=== PATIENT | female | born 1960 | race Caucasian/White ===

== ENCOUNTER 2017-01-19 05:14 | Day surgery (SDC) | payer OTHER ==
--- NOTE | 2017-01-18 11:58 | HP ---
DATE OF CLINIC: 01/04/2017 MICHELLE CASEY : 1960 PLANNED PROCEDURE: Left Carpal Tunnel Release DATE OF SURGERY: January 19, 2017 SURGEON: Gian Westbrook M.D. PCP: BREANNA Arreola HISTORY OF PRESENT ILLNESS Michelle Casey is a 56 year old female. * Medication list reviewed with patient allergy list reviewed with patient. * Tried NSAIDS Meloxicam * Has not tried Physical Therapy * Has not tried Injections This is a 56-year-old female who had bilateral carpal tunnel syndrome. She was treated with a right carpal tunnel release with good effect by Dr. Herrera the first part of the September. She presents with persistent symptoms in her left hand desiring surgical management. She has nerve conduction studies that document the same. She complains of 3-4/10 pain in her left hand. It is worse with activities or pressure in the palm. She has numbness and tingling in the radial 3.5 digits. PAST MEDICAL AND SURGICAL HISTORY: No changes in her past medical or surgical history since her previous visits. CURRENT MEDICATION * Abilify 2 MG Tablet 1 once a day 0 days, 0 refills * flexeril 10mg Tablet 1 once a day 0 days, 0 refills * Meloxicam 7.5 MG Tablet 1 once a day 0 days, 0 refills * MetFORMIN HCl 500 MG Tablet four times a day 0 days, 0 refills * Omeprazole 10 MG Capsule Delayed Release 1 twice a day 0 days, 0 refills * OxyCODONE HCl 5 MG Tablet 1 twice a day prn post operative pain, 10 days, 0 refills * Sertraline HCl 25 MG Tablet 1 once a day 0 days, 0 refills * TraZODone HCl 50 MG Tablet 1 every bedtime 0 days, 0 refills PAST MEDICAL/SURGICAL HISTORY Reported: Medical: Reported numbness, Reported tingling, Diabetes Mellitus, history of Arthritis, and Hypertension. Surgical / Procedural: Prior surgery Ear Surgery Leg Surgery and Carpal Tunnel Surgery Right performed by Dr. Cristhian Herrera at the [facility] on 09/28/16. Surgical: * Hysterectomy partial hysterectomy SOCIAL HISTORY Behavioral: Caffeine use and non-smoker quit smoking. Smoking status: Former smoker. ALLERGIES * Codeine * Gabapentin FAMILY HISTORY 4 children living REVIEW OF SYSTEMS No recent constitutional symptoms to include fevers and chills. No recent cardiovascular symptoms to include chest pain or palpitations. No recent respiratory symptoms to include shortness of breath or recent infections. PHYSICAL FINDINGS * Vitals taken 01/04/2017 08:52 am BP-Sitting R 148/83 mmHg Pulse Rate-Sitting 69 bpm Temp-Oral 98.2 F Height 63 in Weight 206 lbs 9.6 oz Body Mass Index 36.6 kg/m2 Body Surface Area 1.96 m2 Pain Level 3 Pain Level Note 3-4/10 Ears, Nose, Throat: * ENT: normal. Lungs: * Clear to auscultation. Cardiovascular: Heart Rate and Rhythm: * Normal. Abdomen: * Normal. Neurological: Motor: * Dominant Hand = Right Hand. Patient is a well-developed, well-nourished female in no acute distress. They are awake, alert and conversant throughout the encounter. CARDIOVASCULAR: Intact peripheral pulses on bilateral upper extremities. No significant edema on inspection of bilateral upper extremities. NEUROLOGIC: Patient had intact coordinated composite motion of the bilateral upper extremities and sensation intact to light touch in all distributions of bilateral upper extremities. PSYCHIATRIC: Patient was oriented to person, place and time and displayed appropriate mood and affect during the encounter. SKIN: Exam of the skin on bilateral upper extremities showed no significant scars, lesions, rashes or masses. FOCUSED MUSCULOSKELETAL EXAM: The patient has a well-healed surgical scar over her right wrist. She has no swelling, erythema or ecchymosis over the left wrist. She has normal resting station of the shoulder, elbows and wrists bilaterally. She has range of motion of the left wrist with flexion to 40 degrees, extension of 20 degrees neutral full pronation and supination. She has positive Tinel's, flexion compression and Phalen's test on the left side. She has 5/[address] seen in the thenar eminence and she is otherwise neurologically intact at the radial, ulnar, AIN and PIN distributions. Her hand is warm and well perfused with brisk capillary refill. TESTS * Test: CBC NO DIFF Report Date: 01/04/2017 WBC 9.7 10*3/mL RBC 4.90 10*6/uL MCH 28.2 pg MCHC 33.1 g/dL RDW 12.7 % MCV 85.1 fL PLATELET COUNT 218 10*3/mL HCT 41.7 % HGB 13.8 g/L * Test: COMPREHENSIVE METABOLIC PANEL Report Date: 01/04/2017 ALT/SGPT 41 U/L ALBUMIN 4.4 g/dL ALB/GLOB RATIO 1.3 BUN 12 mg/dL BUN/CREAT RATIO 13 CALCIUM 10.0 mg/dL GLUCOSE 170 mg/dL High CREATININE 0.9 mg/dL SODIUM 138 meq/L POTASSIUM 4.7 meq/L CHLORIDE 101 meq/L CARBON DIOXIDE 29 meq/L ANION GAP 13 meq/L TOT PROTEIN 7.8 g/dL GLOBULIN 3.4 g/dL BILI,TOTAL 0.7 mg/dL AST/SGOT 72 U/L High ALK PHOSPHATASE 49 U/L GFR 65 IMAGING: A review of x-rays show some mild erosions around the tip of the radial styloid that could be consistent with an inflammatory arthropathy although she has no documented history of the same. There are no masses in the volar portion of the wrist to suggest a bony component to her nerve compression syndrome. ASSESSMENT A 56-year-old female with left carpal tunnel syndrome. THERAPY * Patient not eligible for fall risk assessment. PLAN * Carpal tunnel syndrome, left upper limb Hydrocodone-Acetaminophen 5-325 MG TABS, 1 every 4 - 6 hours as needed, 14 days, 0 refills * Decompression of median nerve at carpal tunnel -left The plan will be for left open carpal tunnel release. Risks, benefits and alternatives were discussed. The patient was eager to proceed with surgery. Informed consent was obtained and documented in the chart and she will be placed on the schedule at the first available convenience. CARE TEAM Malina Arellano PA-C Physician Turret Lathe Machinist SURGICAL CONSENT We have discussed surgical options including left carpal tunnel release and non-operative management. The patient was counseled in detail regarding the diagnosis, treatment options available, prognosis of each treatment option and the potential risks and complications. The risks of surgery include, but are not limited to, anesthetic , neurovascular complications, pulmonary embolism, deep vein thrombosis, wound dehiscence, failure of any or all of the discussed procedures, infection of the joint or surrounding soft tissue, need for revision surgery, chronic pain, limitations in activities of daily living, inability to return to work, and loss of normal range of motion or functional use of the extremity. There is the possibility of failure over time that may require additional operative or non-operative treatment. The patient acknowledged that there are a number of perioperative risks not mentioned here and would still like to proceed. The patient is aware of and understands these risks, and wishes to proceed with the proposed surgical procedure and other procedures as indicated at the time of surgery. We will have the patient see their PCP for a preoperative medical risk assessment. The preoperative instructions were reviewed with the patient and all questions were answered. PB/sg
[2017-01-19] MEDS ORDERED: IV START KIT ONE ×2 (05:35)
[2017-01-19] MEDS ORDERED: LACTATED RINGERS 0 ML ONE (05:35)
[2017-01-19] MEDS ORDERED: CEFAZOLIN SODIUM 2 GRAM PREMIX 100 ML IV PRN (05:45)
[2017-01-19] MEDS ORDERED: SODIUM CHLORIDE 0.9% 1,000 ML ONE (05:47)
[2017-01-19] MEDS ORDERED: LIDOCAINE 0.5% (PRES FREE) 50 ML VIAL ONE (06:28)
[2017-01-19] MEDS ORDERED: FENTANYL 100 MCG/2 ML VIAL ONE (06:34)
[2017-01-19] MEDS ORDERED: MIDAZOLAM HCL 5 MG/5 ML VIAL ONE (06:34)
[2017-01-19] MEDS ORDERED: PROPOFOL 20 ML IV ONE (07:14)
--- NOTE | 2017-01-19 08:02 | PCMBPN ---
Brief Post Op Note: Date of Procedure: 01/19/17 Start Time: 729 Preoperative Diagnosis: 1. LEFT CTS Postoperative Diagnosis: 1. Same Procedure: LEFT Open CTR Surgeon: Gian Westbrook MD Assist:BREANNA Mckee Anesthesia: Ani Sheets CRNA Findings: See above Condition: Stable Complications: None IV Fluids: 500 mLs of LR Urine Output: 0 mLs Estimated Blood Loss: 5 mLs Tourniquet Time: 5 min at 250mmHg Specimens: N/A Implants: None Drains: [N/A]
[2017-01-19] MEDS ORDERED: HYDROMORPHONE HCL 1 MG/ML SYRINGE IV PRN (08:15)
[2017-01-19] MEDS ORDERED: ONDANSETRON 4 MG/2ML 2 ML VIAL IV PRN (08:15)
[2017-01-19] MEDS ORDERED: OXYCODONE/ACETAMINOPHEN 5/325 MG TABLET PO PRN (08:15)
[2017-01-19] MEDS ORDERED: ACETAMINOPHEN 325 MG TABLET PO PRN (08:15)
[2017-01-19] MEDS ORDERED: DIPHENHYDRAMINE HCL 50 MG/1 ML VIAL IV PRN (08:15)
[2017-01-19] MEDS ORDERED: LACTATED RINGERS 1,000 ML IV SCH (08:15)
[2017-01-19] MEDS ORDERED: HYDROMORPHONE HCL 0.5 MG/0.5 ML SYRINGE IV PRN (09:11)
--- NOTE | 2017-01-20 14:21 | OP ---
Meghann CASEY : 1960 V [id number] DATE OF SERVICE: January 19, 2017 PREOPERATIVE DIAGNOSIS: Left carpal tunnel syndrome. POSTOPERATIVE DIAGNOSIS: Left carpal tunnel syndrome. PROCEDURE PERFORMED: Left CARPAL TUNNEL RELEASE. SURGEON: Gian Westbrook M.D. TRAWL NET MAKER: None. ANESTHESIA: Kylie Sheets C.R.N.A. SPECIMENS: No material was sent to the laboratory. ESTIMATED BLOOD LOSS: 5 mL FLUIDS REPLACED: 500 mL of crystalloid. TOURNIQUET TIME: 30 minutes at 250 mmHg. IMPLANTS: None. DRAINS: None. INDICATIONS: This is a 56-year-old right hand dominant patient with history, physical exam and neurodiagnostic findings of left carpal tunnel syndrome, which has failed to be relieved by nonoperative measures. Risks, benefits and alternatives of an open carpal tunnel release were discussed with the patient and they elected to proceed with surgery. Informed consent was obtained and documented in the chart and the patient was placed on the schedule the first available convenience. DESCRIPTION OF PROCEDURE: The patient was identified in the pre-operative holding area where they were marked with an indelible marker by the operating surgeon. The patient was taken to the operating room where they were placed in the supine position on the operating room table. A Machias block anesthetic was administered by the anesthesia provider. The patient was prepped and draped in the usual sterile fashion for surgery and received perioperative antibiotics prior to the inflation of the tourniquet. A final operative time out was performed and confirmed by all members of the operative team and a longitudinal incision was made on the patient's hand just 6 mm ulnar to the thenar flexion crease. Dissection was carried down identifying transverse fibers of the transverse carpal ligament. This was sharply divided at its proximal extent and the median nerve was visualized. A [place] elevator was passed into the carpal tunnel to protect the nerve while the remainder of the transverse carpal ligament was sharply divided. This was carried distally until we encountered the perivascular fat of the vascular arches. The tenotomy scissors were passed both superficial and deep to the distal volar forearm fascia proximally and no transligamentous branches of the nerve were identified. Under direct visualization a push cut technique was used to divide the proximal portion of the transverse carpal ligament and the distal volar forearm fascia. At this point we felt that we had achieved an adequate release of the patient's nerves so the wound was copiously irrigated with sterile saline and closed with horizontal mattress sutures of #4-0 Nylon. A sterile dressing of Xeroform, fluffs, web roll and an ROSA bandage was applied. The tourniquet was deflated, the drapes were removed. The patient was transferred to a stretcher and taken postoperatively to the same day surgery unit in stable condition. There were no observed intraoperative complications during this procedure. Job [id number] Cc: [facility]
== END 2017-01-19 08:52 | disposition home or self-care (01) ==
LOC: SDC 05:14
PROVIDERS: ATTEND Orthopaedic Surgery
PROC: 01N50ZZ Release Median Nerve, Open Approach (ICD-10-PCS; principal; 2017-01-19)
DX: G56.02 Carpal tunnel syndrome, left upper limb (principal); E11.9 Type 2 diabetes mellitus without complications; Z79.84 Long term (current) use of oral hypoglycemic drugs; I10 Essential (primary) hypertension; M19.90 Unspecified osteoarthritis, unspecified site; Z87.891 Personal history of nicotine dependence; Z88.5 Allergy status to narcotic agent; Z88.8 Allergy status to other drugs, medicaments and biological substances

== ENCOUNTER 2017-02-23 08:25 | Day surgery (SDC) | payer OTHER ==
[2017-02-23] MEDS ORDERED: CEFAZOLIN SODIUM 2 GRAM PREMIX 100 ML IV PRN (08:30)
--- NOTE | 2017-02-23 08:52 | HP ---
DATE OF CLINIC: 02/22/2017 MICHELLE CASEY : 1960 PLANNED PROCEDURE: I&D of Left Carpal Tunnel Release Incision DATE OF SURGERY: February 23, 2017 SURGEON: Gian Westbrook M.D. PCP: Malina Mohamud PA-C. HISTORY OF PRESENT ILLNESS Michelle Casey is a 56 year old female. * Medication list reviewed with patient allergy list reviewed with patient. 56-year-old female who is now 4 1/2 weeks out from a left open carpal tunnel release. She removed her own sutures and feels that she may have left a bit of suture inside of the wound. It is now draining purulence and is red and irritated. She said it built for several days before it finally ruptured and drained quite a bit of purulence. She has not had any ascending pain up the arm. She does have discomfort around the surgical site, but no other specific complaints. She notes that she had some fever this weekend, although she didn't actually check her temperature. Past medical and surgical history are unchanged from her previous visits. CURRENT MEDICATION * Abilify 2 MG Tablet 1 once a day 0 days, 0 refills * flexeril 10mg Tablet 1 once a day 0 days, 0 refills * Meloxicam 7.5 MG Tablet 1 once a day 0 days, 0 refills * MetFORMIN HCl 500 MG Tablet four times a day 0 days, 0 refills * Omeprazole 10 MG Capsule Delayed Release 1 twice a day 0 days, 0 refills * Sertraline HCl 25 MG Tablet 1 once a day 0 days, 0 refills * TraZODone HCl 50 MG Tablet 1 every bedtime 0 days, 0 refills PAST MEDICAL/SURGICAL HISTORY Reported: Medical: Reported numbness, Reported tingling, Diabetes Mellitus, history of Arthritis, and Hypertension. Surgical / Procedural: Prior surgery Ear Surgery Leg Surgery and Carpal Tunnel Surgery Right performed by Dr. Cristhian Herrera at the [facility] on 09/28/[address] Gian Westbrook at the [facility] on 01/19/17. Surgical: * Hysterectomy partial hysterectomy SOCIAL HISTORY Behavioral: Caffeine use and non-smoker quit smoking. Smoking status: Former smoker. ALLERGIES * Codeine Reaction: Nausea/Vomiting/Diarrhea * Gabapentin Reaction: Skin Rashes/Hives FAMILY HISTORY 4 children living REVIEW OF SYSTEMS Negative for any cardiovascular or respiratory symptoms. She says she still feels a little bit under the weather. No recent constitutional symptoms to include fevers and chills. No recent cardiovascular symptoms to include chest pain or palpitations. No recent respiratory symptoms to include shortness of breath or recent infections. PHYSICAL FINDINGS * Vitals taken 02/22/2017 08:29 am BP-Sitting R 130/66 mmHg BP Cuff Size Regular Pulse Rate-Sitting 65 bpm Temp-Oral 98 F Height 63 in Weight 200 lbs Body Mass Index 35.4 kg/m2 Body Surface Area 1.93 m2 Pain Level 4 Ears, Nose, Throat: * ENT: normal. Lungs: * Clear to auscultation. Cardiovascular: Heart Rate and Rhythm: * Normal. Abdomen: * Normal. Neurological: Motor: * Dominant Hand = Right Hand. This is a well-developed, well-nourished female in no acute distress. She is awake, alert and conversant throughout the encounter. CARDIOVASCULAR: Intact peripheral pulses on bilateral upper extremities. No significant edema on inspection of bilateral upper extremities. NEUROLOGIC: Patient had intact coordinated composite motion of the bilateral upper extremities and sensation intact to light touch in all distributions of bilateral upper extremities. PSYCHIATRIC: Patient was oriented to person, place and time and displayed appropriate mood and affect during the encounter. SKIN: Exam of the skin on bilateral upper extremities showed no significant scars, lesions, rashes or masses. FOCUSED MUSCULOSKELETAL EXAM: The left hand shows erythema and several small areas of draining purulence that is expressible. There is no erythema ascending the arm. She has intact sensation in the radial, ulnar, median, AIN and PIN distributions. Her hand is warm and well perfused. IMAGING No new x-rays today. Cultures were obtained yesterday, but are not yet available. ASSESSMENT 56-year-old, RHD female s/p left carpal tunnel release with a wound infection that may be due to persistent suture that was left in the wound after she took her own sutures out. THERAPY * Patient not eligible for fall risk assessment. PLAN Plan will be for a limited I&D in the OR tomorrow. We will obtain a new set of cultures at that time, probably have her stay overnight for 24 hours of antibiotics and then send her home on po's with daily dressing changes and allow this heal by secondary intention. CARE TEAM Malina Mohamud PA-C Physician Manager Laundry SURGICAL CONSENT We have discussed surgical options including I&D of left carpal tunnel incision and non-operative management. The patient was counseled in detail regarding the diagnosis, treatment options available, prognosis of each treatment option and the potential risks and complications. The risks of surgery include, but are not limited to, anesthetic , neurovascular complications, pulmonary embolism, deep vein thrombosis, wound dehiscence, failure of any or all of the discussed procedures, infection of the joint or surrounding soft tissue, need for revision surgery, chronic pain, limitations in activities of daily living, inability to return to work, and loss of normal range of motion or functional use of the extremity. There is the possibility of failure over time that may require additional operative or non-operative treatment. The patient acknowledged that there are a number of perioperative risks not mentioned here and would still like to proceed. The patient is aware of and understands these risks, and wishes to proceed with the proposed surgical procedure and other procedures as indicated at the time of surgery. We will have the patient see their PCP for a preoperative medical risk assessment. The preoperative instructions were reviewed with the patient and all questions were answered. PB/sg
[2017-02-23] MEDS ORDERED: PROPOFOL 40 ML IV ONE (10:34)
[2017-02-23] MEDS ORDERED: MIDAZOLAM HCL 1 MG/ML 2ML VIAL ONE (10:52)
[2017-02-23] MEDS ORDERED: FENTANYL 100 MCG/2 ML VIAL ONE ×3 (10:57→12:15)
[2017-02-23] MEDS ORDERED: PROPOFOL 20 ML IV ONE (10:57)
[2017-02-23] MEDS ORDERED: CLINDAMYCIN 900 MG PREMIX 50 ML IV ONE (11:15)
[2017-02-23] MEDS ORDERED: ONDANSETRON 4 MG/2ML 2 ML VIAL ONE (11:19)
[2017-02-23] MEDS ORDERED: ONDANSETRON 4 MG/2ML 2 ML VIAL IV PRN ×2 (11:25→12:48)
[2017-02-23] MEDS ORDERED: MORPHINE SULFATE 4 MG/ML SYRINGE IV PRN (11:25)
[2017-02-23] MEDS ORDERED: FENTANYL 100 MCG/2 ML VIAL IV PRN (11:25)
[2017-02-23] MEDS ORDERED: PROMETHAZINE HCL 25 MG/ML VIAL IM PRN (11:25)
[2017-02-23] MEDS ORDERED: LACTATED RINGERS 1,000 ML IV SCH ×2 (11:30→12:48)
--- NOTE | 2017-02-23 11:53 | PCMBPN ---
Brief Post Op Note: Date of Procedure: 02/23/17 Start Time: 11:30 Preoperative Diagnosis: 1. Left wrist incision postop infection Postoperative Diagnosis: 1. Same, with retained nylon suture from previous surgery Procedure: Left Wrist I&D, removal of retained suture Surgeon: Gian Westbrook MD Assist:BREANNA Mckee Anesthesia: Krishna Alves CRNA Findings: See above Condition: Stable Complications: None IV Fluids: 1400 mLs of LR Urine Output: 0 mLs Estimated Blood Loss: 15 mLs Tourniquet Time: 9min at 250mmHg Specimens: N/A Implants: None Drains: 1/" Pin Adore Drain unsutured
[2017-02-23] MEDS ORDERED: HYDROMORPHONE HCL 1 MG/ML SYRINGE IV PRN (12:48)
[2017-02-23] MEDS ORDERED: ACETAMINOPHEN 325 MG TABLET PO PRN (12:48)
[2017-02-23] MEDS ORDERED: DIPHENHYDRAMINE HCL 50 MG/1 ML VIAL IV PRN (12:48)
[2017-02-23] MEDS ORDERED: HYDROCODONE/ACETAMINOPHEN 5/325MG TABLET PO PRN (12:48)
[2017-02-23] MEDS ORDERED: HYDROCODONE/ACETAMINOPHEN 5/325MG TABLET ONE (13:09)
--- NOTE | 2017-02-23 17:28 | OP ---
Meghann CASEY : 1960 [id number] DATE OF SERVICE: February 23, 2017 PREOPERATIVE DIAGNOSIS: Left wrist incision with a postoperative infection. POSTOPERATIVE DIAGNOSES: Left wrist incision with a postoperative infection with retained Nylon sutures from previous surgery. PROCEDURE PERFORMED: LEFT WRIST IRRIGATION AND DEBRIDEMENT WITH REMOVAL OF FOREIGN BODY. SURGEON: Gian Westbrook M.D. ANIMAL CONTROL SPECIALIST: Rohan Henson P.A.-C. ANESTHESIA: Javid JohnsonN.Alannah. SPECIMENS: No material was sent to the laboratory from today's laboratory as we already had adequate cultures. DRAINS: 0.25 inch Lefor drain which was not sutured in place. ESTIMATED BLOOD LOSS: 15 mL. FLUIDS REPLACED: 1400 mL of crystalloid. TOURNIQUET TIME: 9 minutes at 250 mmHg. INDICATIONS: This is a 56-year-old female who removed her own sutures after a previous carpal tunnel surgery and left several fragments in the wound. She subsequently presented with drainage and erythema about the incision and was counseled that she had a postoperative infection that would require a debridement in the operating room. Cultures were obtained in the clinic and she was taken to the operating room at the first available convenience. DESCRIPTION OF PROCEDURE: The patient was identified in the preoperative holding area and marked with an indelible marker by the operating surgeon and taken to the operating room where she was placed in the supine position on the operating room table. General anesthesia was induced, perioperative antibiotics were administered since we already had results on her cultures. A well padded pre-calibrated nonsterile tourniquet was placed on her left upper arm. She was prepped and draped in the usual sterile fashion for surgery after a time out was performed and confirmed by all members of the operative team. Her arm was elevated and the tourniquet was inflated to 250 mmHg. A longitudinal incision was made in the center of her previous incision and significant purulence was identified. This was irrigated and drained. Exploration was taken deep and she was found not to have any significant deep purulence although the tissue was open all the way down to the nerve. Using a knife and forceps the skin margins were sharply debridement back to bleeding rim and then a rongeur was used to debride any remaining loose tissue. Several liters of sterile saline were then irrigated through the incision with good clean the tissue resulting. We dropped the tourniquet, obtained hemostasis and then placed a Bry into the incision and two simple sutures of #2-0 Nylon to appose the skin edges. A sterile dressing of fluffs, web roll and an ROSA bandage was applied. The drapes were removed. The patient was awakened from her anesthesia, extubated in the operating room. She was transferred to a stretcher and taken postoperatively to the post anesthesia care unit in stable condition. There were no observed intraoperative complications during this procedure. Job [id number] Cc: [facility]
== END 2017-02-23 13:46 | disposition home or self-care (01) ==
LOC: SDC 08:25
PROVIDERS: ATTEND Orthopaedic Surgery
PROC: 0JDJ0ZZ Extraction of Right Hand Subcutaneous Tissue and Fascia, Open Approach (ICD-10-PCS; principal; 2017-02-23)
DX: T81.4XXA Infection following a procedure, initial encounter (principal); I10 Essential (primary) hypertension; E78.00 Pure hypercholesterolemia, unspecified; K21.9 Gastro-esophageal reflux disease without esophagitis; E11.9 Type 2 diabetes mellitus without complications; Z79.84 Long term (current) use of oral hypoglycemic drugs; Z87.891 Personal history of nicotine dependence
CPT/HCPCS: 10180; J3010 ×4; J2250; J2405; A9270